=== PATIENT | female | born 1955 | race American Indian/Alaskan Native ===

== ENCOUNTER 2019-02-01 09:39 | Outpatient (CLI) | payer MEDICARE | END 2019-02-01 09:40 | disposition home or self-care (01) | LOC: C.MAMMO 09:39 | DX: Z12.31 Encounter for screening mammogram for malignant neoplasm of breast (principal); F17.200 Nicotine dependence, unspecified, uncomplicated ==

== ENCOUNTER 2019-02-04 06:39 | Day surgery (SDC) | payer MEDICARE ==
[2019-02-04 07:05] VITALS: BMI 27.6
[2019-02-04] MEDS ORDERED: Propofol 10 mg/ml Inj (20 ML) ONE (08:35)
[2019-02-04] MEDS ORDERED: Lidocaine Hydrochloride 5 ML INJ ONE (08:57)
[2019-02-04 10:55] VITALS: TEMP 98
[2019-02-04 10:56] VITALS: RESP 20; O2SAT 100
[2019-02-04 11:02] VITALS: BP 140/70; PULSE 75
== END 2019-02-04 10:30 | disposition home or self-care (01) ==
LOC: C.ENDO 06:39
PROVIDERS: ATTEND Internal Medicine Gastroenterology
DX: Z12.11 Encounter for screening for malignant neoplasm of colon (principal); K63.5 Polyp of colon; K57.30 Diverticulosis of large intestine without perforation or abscess without bleeding; K62.1 Rectal polyp; K64.1 Second degree hemorrhoids
CPT/HCPCS: 45380; 88305; J2704

== ENCOUNTER 2019-03-03 11:40 | Outpatient (CLI) | payer MEDICARE | END 2019-03-03 11:41 | disposition home or self-care (01) | LOC: C.MAMMO 11:40 ==